=== PATIENT | female | born 1995 | race Caucasian/White ===

== ENCOUNTER 2016-11-08 10:03 | Emergency (ER) | payer OTHER ==
[2016-11-08 10:19] VITALS: BP 113/63; PULSE 84; TEMP 98.6; BMI 20.9
--- NOTE | 2016-11-08 10:28 | PDOC ---
History of Present Illness <Amada Mccormick - Last Filed: 11/08/16 15:34> - General History Source: Patient Exam Limitations: No Limitations - History of Present Illness Initial Comments: 11/08/16 11:06 The patient is a 21 year old female who is 18 weeks , with no significant past medical history, who presents to the emergency department with dysuria and urgency for the past 3 days. She notes that she is able to urinate a very small amount but notes that when she does, she experiences a burning sensation. She denies any other kind of symptoms. She denies any vaginal discharge. The patient denies chest pain, shortness of breath, headache and dizziness. Denies fever, chills, nausea, vomit, diarrhea and constipation. Denies frequency , and hematuria. Allergies: None Past surgical history: None reported Social history: No alcohol, tobacco or drug use reported <Alverto Biggs - Last Filed: 11/08/16 15:51> - General Chief Complaint: Pain Stated Complaint: LT SIDE PAIN, 16 WKS Time Seen by Provider: 11/08/16 10:25 Past History - Past Medical History Suicide Attempt (Hx): No - Psycho/Social/Smoking Cessation Hx Anxiety: No Suicidal Ideation: No Smoking Status: No Smoking History: Never smoked Have you smoked in the past 12 months: No Number of Cigarettes Smoked Daily: 0 Information on smoking cessation initiated: No Hx Alcohol Use: No Drug/Substance Use Hx: No Substance Use Type: None <Amada Mccormick - Last Filed: 11/08/16 15:34> <Alverto Biggs - Last Filed: 11/08/16 15:51> - Past Medical History Allergies/Adverse Reactions: Allergies Allergy/AdvReac Type Severity Reaction Status Date / Time No Known Allergies Allergy Verified 11/08/16 10:18 Home Medications: Ambulatory Orders Cephalexin [Keflex] 500 mg PO BID #14 capsule 11/10/15 Acetaminophen [Tylenol] 650 mg PO Q4H PRN #20 tablet 09/02/16 Cephalexin [Keflex] 500 mg PO BID #14 capsule 09/02/16 Metoclopramide HCl [Reglan] 10 mg PO Q6H PRN #20 tablet 09/02/16 Cephalexin Monohydrate [Keflex -] 500 mg PO Q8H #30 capsule 11/08/16 Review of Systems - Review of Systems Able to Perform ROS?: Yes Comments:: 11/08/16 11:06 GENERAL/CONSTITUTIONAL: No fever or chills. No weakness. HEAD, EYES, EARS, NOSE AND THROAT: No change in vision. No ear pain or discharge. No sore throat. CARDIOVASCULAR: No chest pain or shortness of breath RESPIRATORY: No cough, wheezing, or hemoptysis. GASTROINTESTINAL: No nausea, vomiting, diarrhea or constipation. GENITOURINARY: +Dysuria and urgency. No frequency MUSCULOSKELETAL: No joint or muscle swelling or pain. No neck or back pain. SKIN: No rash NEUROLOGIC: No headache, vertigo, loss of consciousness, or change in strength/ sensation. ENDOCRINE: No increased thirst. No abnormal weight change HEMATOLOGIC/LYMPHATIC: No anemia, easy bleeding, or history of blood clots. ALLERGIC/IMMUNOLOGIC: No hives or skin allergy. <Alverto Biggs - Last Filed: 11/08/16 15:51> *Physical Exam - Vital Signs Last Vital Signs Temp Pulse Resp BP Pulse Ox 98.6 F 84 18 113/63 98 11/08/16 10:15 11/08/16 10:15 11/08/16 10:15 11/08/16 10:15 11/08/16 10:15 - Physical Exam Comments: GENERAL: Awake, alert, and fully oriented, in no acute distress HEAD: No signs of trauma EYES: PERRLA, EOMI, sclera anicteric, conjunctiva clear ENT: Auricles normal inspection, hearing grossly normal, nares patent, oropharynx clear without exudates. Moist mucosa NECK: Normal ROM, supple, no lymphadenopathy, JVD, or masses LUNGS: Breath sounds equal, clear to auscultation bilaterally. No wheezes, and no crackles HEART: Regular rate and rhythm, normal S1 and S2, no murmurs, rubs or gallops ABDOMEN: Soft, mild suprapubic and LLQ tenderness, normoactive bowel sounds. No guarding, no rebound. No masses EXTREMITIES: Normal range of motion, no edema. No clubbing or cyanosis. No cords, erythema, or tenderness NEUROLOGICAL: Cranial nerves II through XII grossly intact. Normal speech, normal gait SKIN: Warm, Dry, normal turgor, no rashes or lesions noted. <Amada Mccormick - Last Filed: 11/08/16 15:34> - Vital Signs Last Vital Signs Temp Pulse Resp BP Pulse Ox 98.6 F 84 18 113/63 98 11/08/16 10:15 11/08/16 10:15 11/08/16 10:15 11/08/16 10:15 11/08/16 10:15 <Alverto Biggs - Last Filed: 11/08/16 15:51> ED Treatment Course - RADIOLOGY Radiograph Interpretation: 11/08/16 13:47 Left flank ultrasound Reviewed by: Dr. Brandon Chavez Impression: Slight dilatation of the right renal pelvis with no evidence of nephrolithiasis or significant hydronephrosis. Obstetrics Ultrasound Reviewed by: Dr. Brandon Chavez Impression: Single live intrauterine gestation 18 weeks 5 days gestational age. <Alverto Biggs - Last Filed: 11/08/16 15:51> Medical Decision Making - Medical Decision Making Patient with no CVAT, no vomiting, no fever. Will treat with keflex. Counseled her to increase PO fluid intake. <Amada Mccormick - Last Filed: 11/08/16 15:34> *DC/Admit/Observation/Transfer - Discharge Dispostion Admit: No <Amada Mccormick - Last Filed: 11/08/16 15:34> - Attestations Scribe Attestion: 11/08/16 11:07 Documentation prepared by Alverto Biggs, acting as medical support assistant for Amada Mccormick MD. <Alverto Biggs - Last Filed: 11/08/16 15:51> Diagnosis at time of Disposition: Urinary tract infection Qualifiers: Urinary tract infection type: site unspecified Hematuria presence: without hematuria Qualified Code(s): N39.0 - Urinary tract infection, site not specified - Discharge Dispostion Disposition: HOME Condition at time of disposition: Improved - Prescriptions Prescriptions: Cephalexin Monohydrate [Keflex -] 500 mg PO Q8H #30 capsule - Patient Instructions Printed Discharge Instructions: DI for Urinary Tract Infection (UTI) Additional Instructions: DRINK PLENTY OF FLUIDS. KEFLEX FOR 10 DAYS FOR THE INFECTION. TYLENOL IF NEEDED FOR PAIN.
[2016-11-08] MEDS ORDERED: SODIUM CHLORIDE 1,000 ML IV STA (11:24)
[2016-11-08 12:05] LABS: URINE APPEARANCE SLCLOUDY; URINE BILIRUBIN NEGATIVE (NEGATIVE); URINE COLOR LTYELLOW; URINE GLUCOSE (UA) NEGATIVE (NEGATIVE); URINE KETONE NEGATIVE (NEGATIVE); URINE NITRITE NEGATIVE (NEGATIVE); URINE UROBILINOGEN NEGATIVE E.U./dl (0.2-1.0)
[2016-11-08 12:36] LABS: URINE BLOOD 2+ (NEGATIVE); URINE LEUK ESTERASE 3+ (NEGATIVE); URINE PROTEIN 1+ (NEGATIVE)
[2016-11-08 12:38] LABS: URINE BACTERIA FEW /hpf (NONE SEEN); URINE MUCUS RARE; URINE RBC 29 /hpf (0-3); URINE WBC 243 /hpf (3-5); YEAST FEW
[2016-11-08] MEDS ORDERED: ACETAMINOPHEN 325 MG TABLET (FP) PO ONE (13:26)
[2016-11-08] MEDS ORDERED: ACETAMINOPHEN 325 MG TABLET (FP) ONE (13:27)
[2016-11-08] MEDS ORDERED: CEPHALEXIN MONOHYDRATE 500 MG CAPSULE (UD) PO ONE (13:34)
[2016-11-08] MEDS ORDERED: CEPHALEXIN MONOHYDRATE 250 MG CAPSULE (FP) ONE (13:48)
== END 2016-11-08 14:49 | disposition home or self-care (01) ==
LOC: JER 10:03
PROC: 3E0337Z Introduction of Electrolytic and Water Balance Substance into Peripheral Vein, Percutaneous Approach (ICD-10-PCS; principal; 2016-11-08)
DX: O23.32 Infections of other parts of urinary tract in pregnancy, second trimester (principal); Z3A.18 18 weeks gestation of pregnancy
CPT/HCPCS: 76775-TC; 76815-TC; 81003; 81015; 84703; 96360; 99282-25

== ENCOUNTER 2017-03-17 15:45 | Inpatient (IN) | payer OTHER ==
[2017-03-17] MEDS ORDERED: DINOPROSTONE 10 MG VAGINAL SUPPOSITORY VG ONE (16:00)
[2017-03-17 16:43] VITALS: BMI 25.4
[2017-03-17 17:57] LABS: BASOPHIL 0.3 % (0-2.0); EOSINOPHIL 0.5 % (0-4.5); MCH 30.3 pg (25.7-33.7); MEAN CELL VOLUME 91.8 fl (80-96); MEAN PLT VOLUME 7.9 fl (7.5-11.1); NEUTROPHILS 76.7 % (42.8-82.8); PLATELET COUNT 278 K/MM3 (134-434); RDW 12.7 % (11.6-15.6)
[2017-03-17 18:21] LABS: INR 0.99 (0.82-1.09); PROTHROMBIN TIME (PATIENT) 10.9 SEC (9.98-11.88)
[2017-03-17 18:24] LABS: ACTIVATED PTT 29.8 SECONDS (26.9-34.4)
[2017-03-17 18:44] LABS: ANION GAP 10 (8-16); BILIRUBIN,TOTAL 0.4 mg/dL (0.2-1.0); CALCIUM 8.8 mg/dL (8.5-10.1); CO2 26 mmol/L (21-32); CREATININE 0.5 mg/dL (0.55-1.02); GLUCOSE,RANDOM 63 mg/dL (74-106); SGOT/AST 40 U/L (15-37); SGPT/ALT 86 U/L (12-78); TOT PROT 6.7 g/dl (6.4-8.2)
[2017-03-17 18:45] LABS: ALK PHOS 221 U/L (45-117)
--- NOTE | 2017-03-17 19:14 | PN ---
Progress Note (short form) - Note Progress Note: cx 1 cm 25 vx -3 mi, fhr cat 1, no contraction, , cervidil inserted
--- NOTE | 2017-03-17 21:59 | HP ---
Past Medical History - Primary Care Physician PCP:: Ousmane Munoz - Admission Chief Complaint: 37 weeks, cholestasis of History of Present Illness: 21 yo f g 1 po 37 weeks with cholestasis of admitted for cervidil induction, risks discussed cx 1 cm 25 vx -3 mi, fhr cat 1, no contraction History Source: Patient Limitations to Obtaining History: No Limitations - Past Medical History ...: 1 ...Para: 0 ...LMP: 06/30/16 ... Weeks Gestation by Dates: 37.1 ...EDC by Dates: 04/06/17 ...EDC by Sono: 04/06/17 - Past Surgical History Hx Myomectomy: No Hx Transabdominal Cerclage: No - Smoking History Smoking history: Never smoked Have you smoked in the past 12 months: No Aproximately how many cigarettes per day: 0 - Alcohol/Substance Use Hx Alcohol Use: No - Social History Usual Living Arrangement: Yes: With Spouse History of Recent Travel: No Home Medications - Allergies Allergies/Adverse Reactions: Allergies Allergy/AdvReac Type Severity Reaction Status Date / Time No Known Allergies Allergy Verified 03/17/17 16:29 - Home Medications Home Medications: Ambulatory Orders Ferrous Sulfate 1 tab PO DAILY 03/17/17 Vit/Iron Fumarate/FA [ Tablet] 1 each PO DAILY 03/17/17 Ursodiol [Actigal] 300 mg PO TID 03/17/17 Review of Systems - Review of Systems Constitutional: reports: No Symptoms Eyes: reports: No Symptoms HENT: reports: No Symptoms Neck: reports: No Symptoms Cardiovascular: reports: No Symptoms Respiratory: reports: No Symptoms Gastrointestinal: reports: No Symptoms Genitourinary: reports: No Symptoms Breasts: reports: No Symptoms Reported Musculoskeletal: reports: No Symptoms Integumentary: reports: No Symptoms Neurological: reports: No Symptoms Endocrine: reports: No Symptoms Hematology/Lymphatic: reports: No Symptoms Psychiatric: reports: No Symptoms Physical Exam - Maternity Vital Signs: Vital Signs Temperature 98.4 F 03/17/17 18:00 Pulse Rate 76 03/17/17 19:00 Respiratory Rate 20 03/17/17 19:00 Blood Pressure 113/52 03/17/17 19:00 O2 Sat by Pulse Oximetry (%) Constitutional: Yes: Well Nourished, No Distress, Calm Eyes: Yes: WNL, Conjunctiva Clear, EOM Intact HENT: Yes: WNL, Atraumatic, Normocephalic Neck: Yes: WNL, Supple, Trachea Midline Cardiovascular: Yes: WNL, Regular Rate and Rhythm Breast(s): Yes: WNL - Abdominal Exam/OB Fundal Height: 37 Number of Fetuses: Single Presentation: Vertex Contractions: No Intensity: Unaware Monitor Mode: External Heart Rate Location: [facility] Category: I Accelerations: Uniform - Vaginal Exam/OB Vaginal Bleediing: No Dilatation (cm): 1 cm Effacement (%): 25 Amniotic Membrane Status: Intact Station: -3 - Physical Exam Extremities: Yes: WNL Edema: LLE: Trace, RLE: Trace Deep Tendon Reflex Grade: Normal +2 ...Motor Strength: WNL Psychiatric: Yes: WNL - Labs Lab Results: CBC, BMP 03/17/17 17:15 03/17/17 17:15 Hemorrhage Risk Assessment - Risk Factors Risk Score: 0 Risk Level: Low Risk Problem List - Problems (1) with 37 weeks completed gestation Code(s): Z3A.37 - 37 WEEKS GESTATION OF (2) Cholestasis during Code(s): O26.619 - LIVER AND BILIARY TRACT DISORD IN , [facility] TRIMESTER K83.1 - OBSTRUCTION OF BILE DUCT Qualifiers: Trimester: third trimester Qualified Code(s): O26.613 - Liver and biliary tract disorders in , third trimester Assessment/Plan admit for induction as per M recommendation, rba discussed
[2017-03-18] MEDS ORDERED: DEXTROSE 5%-LACTATED RINGERS 500 ML IV SCH (01:30)
[2017-03-18] MEDS: DEXTROSE 5%-LACTATED RINGERS 1,000 ML IV SCH (02:20)
[2017-03-18] MEDS ORDERED: BUTORPHANOL TARTRATE 1 MG/ML VIAL IVPUSH PRN (08:44)
--- NOTE | 2017-03-18 08:44 | PN ---
Progress Note (short form) - Note Progress Note: cervidil removed at 715 am, 840 am cx 3 cm,80 vx -2 membrane bulging . arom clear fhr cat 1, irregular contraction plan pitocin stimulation, rba discussed Problem List - Problems (1) with 37 weeks completed gestation Code(s): Z3A.37 - 37 WEEKS GESTATION OF (2) Cholestasis during Code(s): O26.619 - LIVER AND BILIARY TRACT DISORD IN , UNSP TRIMESTER K83.1 - OBSTRUCTION OF BILE DUCT Qualifiers: Trimester: third trimester Qualified Code(s): O26.613 - Liver and biliary tract disorders in , third trimester
[2017-03-18] MEDS ORDERED: FERROUS SO4 325 MG TABLET (FP) PO SCH (10:00)
[2017-03-18] MEDS ORDERED: FENTANYL/BUPIVACAINE/NS/PF - PCEA - 50 ML DISP.SYRIN EP SCH (12:00)
[2017-03-18] MEDS ORDERED: ELECTROLYTE-148 SOLN 1,000 ML IV SCH ×2 (12:45→20:00)
[2017-03-18] MEDS ORDERED: OXYTOCIN 15 UNITS/ LR 250 ML 250 ML IVPB SCH (15:15)
--- NOTE | 2017-03-18 15:22 | PN ---
Progress Note (short form) - Note Progress Note: 21 yrs 37 weeks, h/o cholestasis, rx po Urosodiol s/p cervidil induction of labor on 03/16/[address] Munoz 8.40 am AROM was done 3 cm/80%/vx-2 9.15 am stadol 2 mg iv 12.00 noon Epidural Labor analgesia 3.15 PM exam 6 cm/80%/Vx/-2/-1 station/ MR UC 2 4 min , mild to moderate FHR 125-130 , reactive, cat -1 03/10/17 us 36.1/7 wks, efw (2648 gm=5'13"0, afi12.18,bpp8/8 Selected Entries 03/18/17 03/18/17 03/18/17 14:11 14:15 14:30 Temperature 97.9 F Pulse Rate 68 66 Blood Pressure 103/65 101/65 03/18/17 14:45 Temperature Pulse Rate 69 Blood Pressure 108/65 Laboratory Tests 03/17/17 03/17/17 03/17/17 17:15 17:15 17:15 WBC 7.0 Hgb 12.0 Hct 36.3 Plt Count 278 Neutrophils % 76.7 Lymphocytes % 16.4 Monocytes % 6.1 Eosinophils % 0.5 INR 0.99 PTT (Actin FS) 29.8 Sodium 138 Potassium 3.9 Chloride 102 Carbon Dioxide 26 Creatinine 0.5 L Random Glucose 63 L Calcium 8.8 Total Bilirubin 0.4 AST 40 H D ALT 86 H RPR Titer 03/17/17 17:15 WBC Hgb Hct Plt Count Neutrophils % Lymphocytes % Monocytes % Eosinophils % INR PTT (Actin FS) Sodium Potassium Chloride Carbon Dioxide Creatinine Random Glucose Calcium Total Bilirubin AST ALT RPR Titer Nonreactive Plan : Pitocin Augmentation ct trial of labor
[2017-03-18] MEDS: PRENATAL VITAMINS W/ FOLIC ACID TABLET (FP) PO SCH (17:39)
[2017-03-18] MEDS ORDERED: ACETAMINOPHEN 325 MG TABLET (FP) PO ONE (18:41)
[2017-03-18] MEDS ORDERED: CEFAZOLIN 1 GM/D5W 50 ML IVPB ONE (18:42)
--- NOTE | 2017-03-18 18:48 | PN ---
Progress Note (short form) - Note Progress Note: 6.30 pm Temp 100.5, pulse 89, BP 100/70 pelvic : 8cm/90%/Vx /0 station/MR UC 2-4 min ,FHR 150 , cat-1 rx po tylenol 2 tabs stat IV Ancef 1 gm ivpb stat Selected Entries 03/18/17 03/18/17 18:30 18:32 Temperature 100.5 F H Pulse Rate 90 Blood Pressure 104/62 7.30pm Temp 101.6, Pulse 105/min , FHR 150/min , cat-1 . UC q 2-3 min pelvic : 9cm/90%/MR/VX/+1 Plan Bolus 500ml/hr iv fluid 8.30 pm Temp 101.7 fhr 150-170 cat-1 cx 9cm/99%/vx +1 /. IMP ; gradual increase in FHR base line 130-140 t0 160-170 now Maternal Temp persistent inspite of Tylenol, , IV ancef , 500 ml bolus Iv fluids AC Chorioamnionitis , failure to progress, failed induction 37 weeks for cholestasis Plan delivery By primary c/section Selected Entries 03/18/17 20:30 Temperature 100.7 F H
[2017-03-18] MEDS ORDERED: CITRIC ACID/SODIUM CITRATE 30 ML UNIT-DOSE CUP PO ONE (20:47)
[2017-03-18 21:47] LABS: ARTERIAL BLD GAS O2 SATURATION 47.5 % (90-98.9); ARTERIAL BLOOD GAS BASE EXCESS -1.2 meq/l (-2-2); ARTERIAL BLOOD GAS HCO3 24.2 meq/L (22-26); ARTERIAL BLOOD GAS pH 7.35 (7.35-7.45)
[2017-03-18 21:50] LABS: VENOUS BLOOD GAS HCO3 24.7 meq/L (19-25); VENOUS PH 7.37 (7.32-7.42)
[2017-03-18 21:53] LABS: PT. ON O2? NO
[2017-03-18 21:54] LABS: ARTERIAL BLOOD GAS PO2 23.5 mmHg (80-100)
[2017-03-18] MEDS ORDERED: METHYLERGONOVINE MALEATE 0.2 MG/1 ML AMP IM PRN (22:00)
[2017-03-18] MEDS ORDERED: IBUPROFEN 800 MG/8 ML IJ IVPB PRN (22:18)
[2017-03-18] MEDS ORDERED: SENNOSIDES/DOCUSATE COMBO (SENNA PLUS) TABLET (UD) PO PRN (22:18)
[2017-03-18] MEDS: D5W-LR W/ 20 UNITS OXYTOCIN 1,000 ML IV SCH (22:30)
[2017-03-18] MEDS ORDERED: OXYTOCIN 10 UNIT/ML 10ML MDV IV SCH (22:45)
--- NOTE | 2017-03-18 22:47 | OP ---
Operative Note - Note: Operative Date: 03/18/17 Pre-Operative Diagnosis: 37 weeks,Ac chorioamnionitis failed induction, failure to progress, cholestasis Operation: Primary LFTC/section Findings: 9.22 pm, Baby Boy, 9/9 wt 6lb, Ht 19", ROP position both tubes & ovaries normal Dr sellers present in the room,baby transferred to NICU Surgeon: Wilda Mckeon It Quality Assurance Analyst: Micheline Arcos Anesthesiologist/DRAINMAN: Silvio Arias Anesthesia: Epidural Specimens Removed: uterine culture. cord segment for cord blood gas. cord blood. placenta Estimated Blood Loss (mls): 1,000 (im methergine post op in OR given ) Drains, Volume Out (mls): 200 (freed iutput, gualberto color ) Fluid Volume Replaced (mls): 1,000 (iv ancef 1 gm preop & 80 mg gentamicin after delivery of baby ) Operative Report Dictated: Yes
[2017-03-18] MEDS ORDERED: LACTATED RINGERS IV SCH (23:00)
[2017-03-18] MEDS ORDERED: DEXTROSE 5% IV SCH (23:00)
[2017-03-18] MEDS ORDERED: OXYTOCIN IV SCH (23:00)
--- NOTE | 2017-03-18 23:06 | PN ---
Delivery - Delivery Section: Primary, Low Flap Transverse (indication 37 weeks, Ac Chorioamnionitis , FTP, Failed Induction of labor, cholestasis) Type of Anesthesia: Epidural Episiotomy/Laceration: None EBL (cc): 1,000 Delivery, Single - Stages of Labor Date 1st Stage Initiatied: 03/18/17 Time 1st Stage Initiated: 08:45 Date of Delivery: 03/18/17 Time of Delivery: 21:22 Date Placenta Delivered: 03/18/17 Time Placenta Delivered: 21:24 Placenta: Yes: Manual Removal, Uterine Exploration - Condition of Director Employee Communications/Wood Borer Present: Yes Name: Shanda Meng Infant Gender: Male Weight: 6 lb Position: Right, OP Total Hours ROM (Hrs/Mins): 12hrs 44mins - 1 Minute Total Score: 9 5 Minutes Total Score: 9 - Feeding Plan Initial Plan: Elected not to breastfeed exclusively throughout hospitalization Remarks - Remarks Remarks: 21 yrs , 37 weeks , IUP , cholestasis admitted for Induction of labor by Dr Munoz on 03/17/17. pnc at , [facility] GBS neg Cervidil induction on 03/17/17 Pitocin augmentation 03/18/17 Elevated Temp, 101 .7, not responding to antibiotic iv ancef), tylenol, iv bolus , tachycardia relative to pearlier baseline Ac Chorioamnionitis diagnozed FTP ( 9 cm/+1 st ) , Failed induction of labor . Intra op IV ancef 1 gm & Iv Gentamicin 80 mg Iv given Intraop course uneventful. uterine culture taken . urine c/s sent preop Post op uterine atony suspected, Im Methergine 0.2 mg im & 40 iu pitocin in 1000 ml is given Po Temp 100.4, BP 113/57, Pulse 106/min
[2017-03-18] MEDS ORDERED: ONDANSETRON 4 MG/2 ML VIAL IVPB PRN (23:09)
[2017-03-19] MEDS: ACETAMINOPHEN 325 MG TABLET (FP) PO PRN ×2 (00:45→14:33)
[2017-03-19] MEDS ORDERED: CEFAZOLIN 1 GM/D5W 50 ML IVPB SCH (02:00)
[2017-03-19] MEDS: GENTAMICIN 80 MG PREMIXED IVPB 100 ML IVPB SCH ×3 (02:13→17:03)
[2017-03-19] MEDS: CLINDAMYCIN 900 MG PREMIX IVPB 50 ML IVPB SCH ×3 (02:59→18:11)
[2017-03-19] MEDS: D5W-LR W/ 20 UNITS OXYTOCIN 1,000 ML IV SCH (07:30)
--- NOTE | 2017-03-19 07:34 | OP ---
DATE OF OPERATION: 03/18/2017 PREOPERATIVE DIAGNOSES: A 37-week , acute chorioamnionitis, failed induction of labor, failure to progress, and cholestasis. OPERATION DONE: Primary low flap transverse section. SURGEON: Wilda Mckeon MD CLINIC LPN: Micheline Arcos MD ANESTHESIOLOGIST: Silvio Arias MD ANESTHESIA: Epidural. FINDINGS: This is a 21-year-old 1, para 0 who was admitted on March 17 for induction of labor with Cervidil due to cholestasis and Cervidil induction followed by Pitocin induction was continued. She dilated up to 9 cm and +1 station, but 2 hours prior to the patient had fever which kept increasing from 100.5 to 101.7 in spite of giving antibiotics and Tylenol and the heart rate baseline had increased from 130 to 160 to 170, some tachycardia also, chorioamnionitis suspected, so patient was taken for a . PROCEDURE: Epidural anesthesia was reinforced and she was taken to the operating room table. Kaur was in situ. SCD stockings were also placed. Abdomen was painted and draped in usual manner. Pfannenstiel incision was made. The skin, subcutaneous tissue, anterior rectus sheath were incised transversely. Bleeding points were clamped and cauterized. Rectus muscle was from the rectus sheath. Parietal peritoneum was opened vertically. Lower flap bladder peritoneum was incised transversely. Lower uterine segment was incised transversely and the amniotic fluid was clear and uterine culture was taken. Baby was delivered from ROP position at 9:22 p.m. Cord was clamped, cut. Cord blood was collected. Immediate oral and nasal suction was done. Baby was handed over to the computer repairer, Dr. Meng. was 9/9 and baby's weight was 6 pounds. Baby was transferred to the NICU for a septic workup. Then, cord segment was collected for the cord blood gas which was normal reported and then cord blood was collected. Placenta was completely removed with the membranes. Uterine cavity was cleaned and then uterine incision was identified. There was bleeding from the left angle of the uterus incision, bleeding from the uterine vessels, so it was separately ligated and then the uterine incision was closed with a Biosyn 0 suture. Continuous locking sutures were taken. Second layer was continuous intermittent locking with a Biosyn 0 suture and vertical mattress sutures were taken. Hemostasis was checked and the bladder peritoneum was closed also with a Biosyn 0 suture. Irrigation was done. Both tubes and ovaries were normal and sponge, instrument, and needle count was correct. Then, the closure of the abdomen was done. Parietal peritoneum was closed with a Vicryl 0 suture. Muscles were approximated together with interrupted Vicryl 0 sutures and below the rectus sheath hemostasis was checked and anterior rectus sheath was closed with a Vicryl 0 suture. Continuous sutures were taken and subcutaneous tissue hemostasis was verified and interrupted sutures were taken in the subcutaneous tissue with a Biosyn 0 suture. The skin was approximated with juana. Pressure dressing was given. Blood clots were removed from the vagina. At this point, uterus was noted to be getting soft and atonic and bimanual uterine massage was given externally and IM Methergine was given, 0.25 mg, and the uterus was getting firm and relaxing in between.mild atony was noted, so it was decided to give 40 units of Pitocin 1000 mL and continue the observation. Estimated blood loss was 1000 mL. Urine output was 200 mL. Intraoperatively, it was gualberto colored. Preoperatively, urine was sent for culture also and patient was given IV Ancef prior to the incision, 1 g, and 80 mg of gentamicin after the baby was born and total IV infusion 1000 mL. Postoperatively, patient's temperature was 100.4. The pulse was 106 and blood pressure was 113/57. Stacey [id number] MTDD
[2017-03-19 08:47] LABS: BASOPHIL 0.1 % (0-2.0); MCH 30.9 pg (25.7-33.7); MCHC 33.4 g/dl (32.0-36.0); MEAN CELL VOLUME 92.4 fl (80-96); MEAN PLT VOLUME 7.7 fl (7.5-11.1); NEUTROPHILS 90.4 % (42.8-82.8); PLATELET COUNT 199 K/MM3 (134-434); RDW 12.7 % (11.6-15.6); WHITE BLOOD COUNT 19.4 K/mm3 (4.0-10.0)
[2017-03-19 09:06] LABS: ALBUMIN 1.8 g/dl (3.4-5.0); ANION GAP 13 (8-16); CALCIUM 7.5 mg/dL (8.5-10.1); CO2 23 mmol/L (21-32); GLUCOSE,RANDOM 87 mg/dL (74-106); SGOT/AST 30 U/L (15-37); SGPT/ALT 60 U/L (12-78)
[2017-03-19 09:08] LABS: ALK PHOS 154 U/L (45-117); BILIRUBIN,TOTAL 1.1 mg/dL (0.2-1.0); CREATININE 0.5 mg/dL (0.55-1.02); TOT PROT 4.7 g/dl (6.4-8.2)
[2017-03-19] MEDS ORDERED: oxyCODONE HCL 5 MG TABLET PO PRN ×2 (10:00)
[2017-03-19] MEDS: PRENATAL VITAMINS W/ FOLIC ACID TABLET (FP) PO SCH (11:28)
--- NOTE | 2017-03-19 13:59 | PN ---
Post Progress Note - Subjective Subjective: c/o pain scale 2 freed in situ . no c/o fever or headache Post Day: 1 Type of Delivery: Primary C/S Vital Signs: Vital Signs Temperature 99.4 F 03/19/17 07:30 Pulse Rate 85 03/19/17 07:30 Respiratory Rate 20 03/19/17 11:00 Blood Pressure 106/52 03/19/17 07:30 O2 Sat by Pulse Oximetry (%) 100 03/19/17 00:30 Selected Entries 03/19/17 03/19/17 03/19/17 00:30 01:15 06:00 Temperature 102.3 F H 101.1 F H 99.9 F H Pulse Rate 86 91 H 94 H Blood Pressure 107/64 106/57 107/50 Breast Exam: Yes: Soft, Other (plans to BF ). No: Engorged Uterus: Yes: Fundus Firm, Fundus below umbilicus, Non-tender Incision: Yes: Dressing dry and intact. No: Redness, Oozing Abdomen/GI: Yes: Abdomen soft, Tender, Tolerating PO (clear liqiuids ). No: Abdominal Distention, Passing flatus Lochia: Yes: Rubra Lochia, amount: Moderate (notfoul smelling) Extremities: Yes: Calves non-tender (scd in situ ) Perineum: Yes: Intact Activity: Other (not oob yet, ) - Labs Labs: CBC WBC 19.4 K/mm3 (4.0-10.0) H D 03/19/17 07:50 RBC 3.33 M/mm3 (3.60-5.2) L 03/19/17 07:50 Hgb 10.3 GM/dL (10.7-15.3) L D 03/19/17 07:50 Hct 30.8 % (32.4-45.2) L D 03/19/17 07:50 MCV 92.4 fl (80-96) 03/19/17 07:50 MCHC 33.4 g/dl (32.0-36.0) 03/19/17 07:50 RDW 12.7 % (11.6-15.6) 03/19/17 07:50 Plt Count 199 K/MM3 (134-434) D 03/19/17 07:50 MPV 7.7 fl (7.5-11.1) 03/19/17 07:50 Neutrophils % 90.4 % (42.8-82.8) H 03/19/17 07:50 Lymphocytes % 5.0 % (8-40) L D 03/19/17 07:50 Monocytes % 4.5 % (3.8-10.2) 03/19/17 07:50 Eosinophils % 0.0 % (0-4.5) D 03/19/17 07:50 Basophils % 0.1 % (0-2.0) 03/19/17 07:50 Other Findings, Remarks: RS cta . freed urine concentrated out put 550 ml Problem List - Problems (1) Cholestasis during Code(s): O26.619 - LIVER AND BILIARY TRACT DISORD IN , UNSP TRIMESTER K83.1 - OBSTRUCTION OF BILE DUCT Qualifiers: Trimester: third trimester Qualified Code(s): O26.613 - Liver and biliary tract disorders in , third trimester (2) with 37 weeks completed gestation Code(s): Z3A.37 - 37 WEEKS GESTATION OF (3) Acute chorioamnionitis Code(s): O41.1290 - CHORIOAMNIONITIS, UNSP TRIMESTER, NOT APPLICABLE OR UNSP (4) Failed induction of labor Code(s): O61.9 - FAILED INDUCTION OF LABOR, UNSPECIFIED (5) Failure to progress in labor Code(s): O62.2 - OTHER UTERINE INERTIA (6) delivery delivered Code(s): O82 - ENCOUNTER FOR DELIVERY WITHOUT INDICATION Assessment/Plan 2o yrs , s/p c/section due to Ac Chorioamnionitis pt had post Temp max to 102.[address] Iv Clindamicin & Gentamicin
[2017-03-19] MEDS: IBUPROFEN 600 MG TABLET (FP) PO PRN (14:32)
[2017-03-19] MEDS: SIMETHICONE 80 MG TAB.CHEW (FP) PO PRN (14:34)
--- NOTE | 2017-03-19 21:42 | PN ---
Progress Note (short form) - Note Progress Note: ANESTHESIOLOGY POST-OP CHECK 21F s/p under epidural anesthesia, POD #1. No acute complaints. Denies N/V, backache, headache, numbness, weakness. Tolerating PO, freed in place. Pain 2/10 and tolerable. Vital Signs Temperature 98.4 F 03/19/17 20:46 Pulse Rate 76 03/19/17 20:46 Respiratory Rate 20 03/19/17 20:46 Blood Pressure 90/64 03/19/17 20:46 O2 Sat by Pulse Oximetry (%) 100 03/19/17 00:30 Active Medications Acetaminophen (Tylenol -) 650 mg PO Q4H PRN PRN Reason: FEVER OR PAIN Last Admin: 03/19/17 14:33 Dose: 650 mg Bisacodyl (Dulcolax Suppository -) 10 mg RC PRN PRN PRN Reason: CONSTIPATION Diphenhydramine HCl (Benadryl Injection -) 25 mg IVPUSH Q4H PRN PRN Reason: Pruritis Ferrous Sulfate (Feosol -) 325 mg PO BID [facility] Parenteral Electrolytes (Plasma-Lyte 148 -) 1,000 mls @ 500 mls/hr IV ASDIR MARCE Last Admin: 03/18/17 19:51 Dose: 500 mls/hr Dextrose/Lactated Ringer's (Pitocin 20 Units In D5-Lr -) 1,000 mls @ 125 mls/ hr IV ASDIR MARCE Last Admin: 03/19/17 07:30 Dose: 125 mls/hr Gentamicin Sulfate/Sodium Chloride (Garamycin 80 Mg Premixed Ivpb -) 100 mls @ 100 mls/hr IVPB Q8H-IV MARCE Last Admin: 03/19/17 17:03 Dose: 100 mls/hr Clindamycin Phosphate (Cleocin 900 Mg Premix Ivpb -) 50 mls @ 100 mls/hr IVPB Q8H-IV MARCE Last Admin: 03/19/17 18:11 Dose: 100 mls/hr Ibuprofen (Motrin -) 600 mg PO Q4H PRN PRN Reason: PAIN Last Admin: 03/19/17 14:32 Dose: 600 mg Ibuprofen (Caldolor Injection -) 800 mg IVPB Q8H PRN PRN Reason: PAIN OR FEVER Last Admin: 03/19/17 20:41 Dose: 800 mg Methylergonovine Maleate (Methergine Injection -) 0.2 mg IM Q4H PRN PRN Reason: Excessive Bleeding (L&D) Oxycodone HCl (Roxicodone -) 5 mg PO Q4H PRN PRN Reason: PAIN LEVEL 1-5 Oxycodone HCl (Roxicodone -) 10 mg PO Q4H PRN PRN Reason: PAIN LEVEL 6-10 Multivit/Folic Acid/Iron ( Vitamins (Sjr) -) 1 tab PO DAILY MARCE Last Admin: 03/19/17 11:28 Dose: Not Given Senna/Docusate Sodium (Pericolace -) 2 tablet PO HS PRN PRN Reason: CONSTIPATION Simethicone (Mylicon -) 80 mg PO Q4H PRN PRN Reason: GAS Last Admin: 03/19/17 14:34 Dose: 80 mg Gen: awake, alert Ext: No apparent motor or sensory deficits of B/L lower extremities. No apparent anesthesia complications. Pain controlled. Continue management as per primary team.
[2017-03-19] MEDS ORDERED: BISACODYL 10 MG SUPP.RECT RC PRN (22:19)
[2017-03-20] MEDS: GENTAMICIN 80 MG PREMIXED IVPB 100 ML IVPB SCH ×3 (02:03→17:40)
[2017-03-20] MEDS: CLINDAMYCIN 900 MG PREMIX IVPB 50 ML IVPB SCH ×3 (02:55→17:00)
[2017-03-20] MEDS: FERROUS SO4 325 MG TABLET (FP) PO SCH ×3 (03:41→22:27)
[2017-03-20] MEDS: DEXTROSE 5%-LACTATED RINGERS 1,000 ML IV SCH (06:21)
--- NOTE | 2017-03-20 07:47 | PN ---
Post Progress Note - Subjective Subjective: no c/o fever. voiding without difficulty Post Day: 2 Type of Delivery: Primary C/S Vital Signs: Vital Signs Temperature 98.3 F 03/20/17 06:00 Pulse Rate 76 03/19/17 20:46 Respiratory Rate 20 03/19/17 22:00 Blood Pressure 90/64 03/19/17 20:46 O2 Sat by Pulse Oximetry (%) 100 03/19/17 00:30 Breast Exam: Yes: Soft, Other (pumping & dumping ). No: Engorged Uterus: Yes: Fundus Firm, Fundus below umbilicus, Non-tender Incision: Yes: [place] intact. No: Redness, Oozing Abdomen/GI: Yes: Abdomen soft, Tender, Passing flatus, Tolerating PO (clear liqiuds ), Other (no cva tenderness). No: Abdominal Distention Lochia: Yes: Rubra Lochia, amount: Moderate Extremities: Yes: Calves non-tender Perineum: Yes: Intact Activity: Ambulating - Labs Labs: CBC WBC 19.4 K/mm3 (4.0-10.0) H D 03/19/17 07:50 RBC 3.33 M/mm3 (3.60-5.2) L 03/19/17 07:50 Hgb 10.3 GM/dL (10.7-15.3) L D 03/19/17 07:50 Hct 30.8 % (32.4-45.2) L D 03/19/17 07:50 MCV 92.4 fl (80-96) 03/19/17 07:50 MCHC 33.4 g/dl (32.0-36.0) 03/19/17 07:50 RDW 12.7 % (11.6-15.6) 03/19/17 07:50 Plt Count 199 K/MM3 (134-434) D 03/19/17 07:50 MPV 7.7 fl (7.5-11.1) 03/19/17 07:50 Neutrophils % 90.4 % (42.8-82.8) H 03/19/17 07:50 Lymphocytes % 5.0 % (8-40) L D 03/19/17 07:50 Monocytes % 4.5 % (3.8-10.2) 03/19/17 07:50 Eosinophils % 0.0 % (0-4.5) D 03/19/17 07:50 Basophils % 0.1 % (0-2.0) 03/19/17 07:50 Other Findings, Remarks: rs cta Problem List - Problems (1) Cholestasis during Code(s): O26.619 - LIVER AND BILIARY TRACT DISORD IN , UNSP TRIMESTER K83.1 - OBSTRUCTION OF BILE DUCT Qualifiers: Trimester: third trimester Qualified Code(s): O26.613 - Liver and biliary tract disorders in , third trimester (2) with 37 weeks completed gestation Code(s): Z3A.37 - 37 WEEKS GESTATION OF (3) Acute chorioamnionitis Code(s): O41.1290 - CHORIOAMNIONITIS, UNSP TRIMESTER, NOT APPLICABLE OR UNSP (4) Failed induction of labor Code(s): O61.9 - FAILED INDUCTION OF LABOR, UNSPECIFIED (5) Failure to progress in labor Code(s): O62.2 - OTHER UTERINE INERTIA (6) delivery delivered Code(s): O82 - ENCOUNTER FOR DELIVERY WITHOUT INDICATION Assessment/Plan post c/s day #2 , s/p ac chorioamnionitis on iV clindamycin & gentamicin Plan ct iv antibiotics
[2017-03-20] MEDS: PRENATAL VITAMINS W/ FOLIC ACID TABLET (FP) PO SCH (09:18)
[2017-03-20] MEDS: ACETAMINOPHEN 325 MG TABLET (FP) PO PRN ×2 (13:45→23:33)
[2017-03-20] MEDS: IBUPROFEN 600 MG TABLET (FP) PO PRN (23:33)
[2017-03-20] MEDS: SIMETHICONE 80 MG TAB.CHEW (FP) PO PRN (23:33)
[2017-03-21] MEDS: GENTAMICIN 80 MG PREMIXED IVPB 100 ML IVPB SCH ×3 (01:42→17:17)
[2017-03-21] MEDS: CLINDAMYCIN 900 MG PREMIX IVPB 50 ML IVPB SCH (02:36)
[2017-03-21] MEDS: D5W-LR W/ 20 UNITS OXYTOCIN 1,000 ML IV SCH (02:39)
[2017-03-21 07:32] LABS: BASOPHIL 0.4 % (0-2.0); EOSINOPHIL 1.1 % (0-4.5); MCH 31.2 pg (25.7-33.7); MCHC 34.4 g/dl (32.0-36.0); MEAN CELL VOLUME 90.8 fl (80-96); NEUTROPHILS 76.7 % (42.8-82.8); PLATELET COUNT 215 K/MM3 (134-434); RDW 13.1 % (11.6-15.6); WHITE BLOOD COUNT 9.9 K/mm3 (4.0-10.0)
--- NOTE | 2017-03-21 08:19 | PN ---
Post Progress Note - Subjective Subjective: pt feels better she had fever yesterday afternoon Tmax 100.2 Post Day: 3 Type of Delivery: Primary C/S Vital Signs: Vital Signs Temperature 97.6 F 03/21/17 05:30 Pulse Rate 70 03/20/17 21:00 Respiratory Rate 20 03/20/17 21:00 Blood Pressure 110/68 03/20/17 21:00 O2 Sat by Pulse Oximetry (%) 100 03/19/17 00:30 Microbiology 03/18/17 21:30 Intrauterine Gram Stain - Final 03/18/17 21:05 Urine - Urine Kaur Urine Culture - Final NO GROWTH OBTAINED 03/18/17 21:30 Intrauterine Wound Culture - Preliminary Group D Strep Or Entero Coccus Selected Entries 03/20/17 03/20/17 07:20 13:40 Temperature 99.9 F H 100.2 F H Pulse Rate 77 Blood Pressure 110/71 Breast Exam: Yes: Soft. No: Engorged Uterus: Yes: Fundus Firm (mild tenderness), Fundus below umbilicus Incision: Yes: [place] intact. No: Redness, Oozing Abdomen/GI: Yes: Abdomen soft, Tender (mild), Passing flatus, Tolerating PO ( diet ). No: Abdominal Distention Lochia: Yes: Rubra Lochia, amount: Moderate Extremities: Yes: Calves non-tender Perineum: Yes: Intact Activity: Ambulating - Labs Labs: CBC WBC 9.9 K/mm3 (4.0-10.0) D 03/21/17 06:00 RBC 3.05 M/mm3 (3.60-5.2) L 03/21/17 06:00 Hgb 9.5 GM/dL (10.7-15.3) L 03/21/17 06:00 Hct 27.7 % (32.4-45.2) L 03/21/17 06:00 MCV 90.8 fl (80-96) 03/21/17 06:00 MCHC 34.4 g/dl (32.0-36.0) 03/21/17 06:00 RDW 13.1 % (11.6-15.6) 03/21/17 06:00 Plt Count 215 K/MM3 (134-434) 03/21/17 06:00 MPV 8.0 fl (7.5-11.1) 03/21/17 06:00 Neutrophils % 76.7 % (42.8-82.8) 03/21/17 06:00 Lymphocytes % 16.3 % (8-40) D 03/21/17 06:00 Monocytes % 5.5 % (3.8-10.2) 03/21/17 06:00 Eosinophils % 1.1 % (0-4.5) D 03/21/17 06:00 Basophils % 0.4 % (0-2.0) D 03/21/17 06:00 Microbiology 03/18/17 21:30 Intrauterine Gram Stain - Final 03/18/17 21:05 Urine - Urine Kaur Urine Culture - Final NO GROWTH OBTAINED 03/18/17 21:30 Intrauterine Wound Culture - Preliminary Group D Strep Or Entero Coccus Other Findings, Remarks: RS cta Problem List - Problems (1) Cholestasis during Code(s): O26.619 - LIVER AND BILIARY TRACT DISORD IN , UNSP TRIMESTER K83.1 - OBSTRUCTION OF BILE DUCT Qualifiers: Trimester: third trimester Qualified Code(s): O26.613 - Liver and biliary tract disorders in , third trimester (2) with 37 weeks completed gestation Code(s): Z3A.37 - 37 WEEKS GESTATION OF (3) Acute chorioamnionitis Code(s): O41.1290 - CHORIOAMNIONITIS, UNSP TRIMESTER, NOT APPLICABLE OR UNSP (4) Failed induction of labor Code(s): O61.9 - FAILED INDUCTION OF LABOR, UNSPECIFIED (5) Failure to progress in labor Code(s): O62.2 - OTHER UTERINE INERTIA (6) delivery delivered Code(s): O82 - ENCOUNTER FOR DELIVERY WITHOUT INDICATION Assessment/Plan s/p c/section for AC Chorioamnionitis , post op day#3 on clindamycin & gentamicin . intrauterine culture pos for Entercocccus D . plan d/c clindamycin, add Ampicillin iv tiday
[2017-03-21] MEDS ORDERED: AMPICILLIN - 2 GM in SODIUM CHLORIDE 100 ML IVPB ONE (09:03)
[2017-03-21] MEDS: FERROUS SO4 325 MG TABLET (FP) PO SCH ×2 (09:57→23:00)
[2017-03-21] MEDS: PRENATAL VITAMINS W/ FOLIC ACID TABLET (FP) PO SCH (09:57)
[2017-03-21] MEDS: AMPICILLIN - 1 GM in SODIUM CHLORIDE 100 ML IVPB SCH ×2 (15:11→21:10)
[2017-03-21] MEDS: IBUPROFEN 600 MG TABLET (FP) PO PRN (23:04)
[2017-03-21] MEDS: SIMETHICONE 80 MG TAB.CHEW (FP) PO PRN (23:04)
[2017-03-21] MEDS: ACETAMINOPHEN 325 MG TABLET (FP) PO PRN (23:05)
[2017-03-22] MEDS: GENTAMICIN 80 MG PREMIXED IVPB 100 ML IVPB SCH ×2 (02:26→12:34)
[2017-03-22] MEDS: AMPICILLIN - 1 GM in SODIUM CHLORIDE 100 ML IVPB SCH ×2 (03:38→09:00)
[2017-03-22] MEDS: FERROUS SO4 325 MG TABLET (FP) PO SCH ×2 (09:07→22:48)
[2017-03-22] MEDS: PRENATAL VITAMINS W/ FOLIC ACID TABLET (FP) PO SCH (09:07)
[2017-03-22] MEDS: AMOX TR/POT CLAV 875MG/125MG TABLETS (FP) PO SCH ×2 (12:33→18:51)
--- NOTE | 2017-03-22 18:15 | PN ---
Post Progress Note - Subjective Subjective: pain is less , scale 5/10 voiding without difficulty Post Day: 4 Type of Delivery: Primary C/S Vital Signs: Vital Signs Temperature 98.4 F 03/22/17 13:00 Pulse Rate 68 03/22/17 13:00 Respiratory Rate 20 03/22/17 13:00 Blood Pressure 118/62 03/22/17 13:00 O2 Sat by Pulse Oximetry (%) 100 03/19/17 00:30 Breast Exam: Yes: Soft, Other (BF ). No: Engorged Uterus: Yes: Fundus Firm, Fundus below umbilicus (mildly tender ) Incision: Yes: [place] intact. No: Redness, Oozing Abdomen/GI: Yes: Abdomen soft, Tender (no cva tenderness bilatera . tenderness over uterus ), Passing flatus (bm done ), Tolerating PO (diet ). No: Abdominal Distention Lochia: Yes: Rubra Lochia, amount: Moderate Extremities: Yes: Calves non-tender Perineum: Yes: Intact Activity: Ambulating - Labs Labs: CBC WBC 9.9 K/mm3 (4.0-10.0) D 03/21/17 06:00 RBC 3.05 M/mm3 (3.60-5.2) L 03/21/17 06:00 Hgb 9.5 GM/dL (10.7-15.3) L 03/21/17 06:00 Hct 27.7 % (32.4-45.2) L 03/21/17 06:00 MCV 90.8 fl (80-96) 03/21/17 06:00 MCHC 34.4 g/dl (32.0-36.0) 03/21/17 06:00 RDW 13.1 % (11.6-15.6) 03/21/17 06:00 Plt Count 215 K/MM3 (134-434) 03/21/17 06:00 MPV 8.0 fl (7.5-11.1) 03/21/17 06:00 Neutrophils % 76.7 % (42.8-82.8) 03/21/17 06:00 Lymphocytes % 16.3 % (8-40) D 03/21/17 06:00 Monocytes % 5.5 % (3.8-10.2) 03/21/17 06:00 Eosinophils % 1.1 % (0-4.5) D 03/21/17 06:00 Basophils % 0.4 % (0-2.0) D 03/21/17 06:00 Microbiology 03/18/17 21:30 Intrauterine Gram Stain - Final 03/18/17 21:30 Intrauterine Wound Culture - Final Enterococcus Faecalis Problem List - Problems (1) Cholestasis during Code(s): O26.619 - LIVER AND BILIARY TRACT DISORD IN , UNSP TRIMESTER K83.1 - OBSTRUCTION OF BILE DUCT Qualifiers: Trimester: third trimester Qualified Code(s): O26.613 - Liver and biliary tract disorders in , third trimester (2) with 37 weeks completed gestation Code(s): Z3A.37 - 37 WEEKS GESTATION OF (3) Acute chorioamnionitis Code(s): O41.1290 - CHORIOAMNIONITIS, UNSP TRIMESTER, NOT APPLICABLE OR UNSP (4) Failed induction of labor Code(s): O61.9 - FAILED INDUCTION OF LABOR, UNSPECIFIED (5) Failure to progress in labor Code(s): O62.2 - OTHER UTERINE INERTIA (6) delivery delivered Code(s): O82 - ENCOUNTER FOR DELIVERY WITHOUT INDICATION Assessment/Plan pod #4 s/p c/section for ac chorioamninitis on iv ampicillin & IV gentamicin IV infiltrated . pt refused for restarting IV She is placed on PO Augmentin. will observe for 24 hrs onpo Antibiotics . will remove juana tomorrow & discharge tomorrow.
[2017-03-22] MEDS: ACETAMINOPHEN 325 MG TABLET (FP) PO PRN (22:48)
[2017-03-22] MEDS: IBUPROFEN 600 MG TABLET (FP) PO PRN (22:48)
[2017-03-23 06:43] LABS: BASOPHIL 0.5 % (0-2.0); EOSINOPHIL 2.2 % (0-4.5); MCH 30.9 pg (25.7-33.7); MCHC 33.6 g/dl (32.0-36.0); MEAN PLT VOLUME 7.6 fl (7.5-11.1); NEUTROPHILS 66.2 % (42.8-82.8); PLATELET COUNT 281 K/MM3 (134-434); RDW 12.8 % (11.6-15.6); WHITE BLOOD COUNT 7.4 K/mm3 (4.0-10.0)
[2017-03-23] MEDS: AMOX TR/POT CLAV 875MG/125MG TABLETS (FP) PO SCH (08:38)
[2017-03-23] MEDS: FERROUS SO4 325 MG TABLET (FP) PO SCH (09:11)
[2017-03-23] MEDS: PRENATAL VITAMINS W/ FOLIC ACID TABLET (FP) PO SCH (09:11)
[2017-03-23 09:38] VITALS: BP 122/79; PULSE 84; TEMP 98.8
--- NOTE | 2017-03-23 09:46 | DS ---
Physical Exam-SPRING ENCASER Vital Signs: Vital Signs Temperature 98.8 F 03/23/17 07:00 Pulse Rate 84 03/23/17 07:00 Respiratory Rate 20 03/23/17 07:00 Blood Pressure 122/79 03/23/17 07:00 O2 Sat by Pulse Oximetry (%) 100 03/19/17 00:30 Constitutional: Yes: Well Nourished, Other (no complains, no fver .24 hrs) Eyes: Yes: WNL HENT: Yes: WNL Neck: Yes: WNL Cardiovascular: Yes: WNL Respiratory: Yes: WNL Gastrointestinal: Yes: WNL, Normal Bowel Sounds, Soft, Other (bm done). No: Distention, Tenderness Renal/: Yes: WNL, Other (voiding without difficlty) ....Post : Yes: Uterus firm, Uterus non-tender, Moderate lochia rubra (no odor) Breast(s): Yes: WNL (BF, full but not engorged) Musculoskeletal: Yes: WNL Extremities: Yes: WNL. No: Calf Tenderness Edema: Yes Edema: LLE: Trace, RLE: Trace Wound/Incision: Yes: Clean/Dry, Well Approximated, Steri Strips, Open to air, Dejah Removed. No: Draining, Reddened, Bleeding, Excoriated Neurological: Yes: WNL, Alert, Oriented ...Motor Strength: WNL Psychiatric: Yes: WNL Labs: CBC, BMP 03/23/17 05:31 03/19/17 07:50 Delivery - Delivery Section: Primary, Low Flap Transverse (indication 37 weeks, Ac Chorioamnionitis , FTP, Failed Induction of labor, cholestasis) Type of Anesthesia: Epidural, Spinal Episiotomy/Laceration: None EBL (cc): 1,000 Delivery, Single - Stages of Labor Date 1st Stage Initiatied: 03/18/17 Time 1st Stage Initiated: 08:45 Date of Delivery: 03/18/17 Time of Delivery: 21:22 Time Placenta Delivered: 21:24 Placenta: Yes: Manual Removal, Uterine Exploration - Condition of Infant Air Quality Consultant/Character Actress Present: Yes Name: Shanda Meng Gender: Male Weight: 6 lb Position: Right, OP Total Hours ROM (Hrs/Mins): 12hrs 44mins - 1 Minute Total Score: 9 5 Minutes Total Score: 9 - [place] Feeding Plan Initial Plan: Elected not to breastfeed exclusively throughout hospitalization Remarks - Remarks Remarks: 21 yrs , 37 weeks , IUP , cholestasis admitted for Induction of labor by Dr Munoz on 03/17/17. pnc at [address] [place] [address] GBS neg Cervidil induction on 03/17/17 Pitocin augmentation 03/18/17 Elevated Temp, 101 .7, not responding to antibiotic iv ancef), tylenol, iv bolus , tachycardia relative to pearlier baseline Ac Chorioamnionitis diagnozed FTP ( 9 cm/+1 st ) , Failed induction of labor . Intra op IV ancef 1 gm & Iv Gentamicin 80 mg Iv given Intraop course uneventful. uterine culture taken . urine c/s sent preop Post op uterine atony suspected, Im Methergine 0.2 mg im & 40 iu pitocin in 1000 ml is given Po Temp 100.4, BP 113/57, Pulse 106/min. post op she was given iv Clindamycin & gentamicin until poday2 , blood cultures & urine culture neg intrauterine culture pos for Enerococci faecalis clindamycin d/last pt placed on iv Ampiciilin& gentamicin, followed by po Augmentin . pt on po augmentin for 24 hrs, afebrile , ct antibiotics for 7 days discharge today anemia counselled Discharge Summary Reason For Visit: C SECTION Current Active Problems Acute chorioamnionitis (Acute) Anemia (Acute) delivery delivered (Acute) Cholestasis during (Acute) Failed induction of labor (Acute) Failure to progress in labor (Acute) with 37 weeks completed gestation (Acute) Condition: Stable - Instructions Diet, Activity, Other Instructions: Post Instructions DIET: Continue good diet high in protein, calcium, and iron rich foods. Drink at least eight (8) glasses of water daily in addition to other fluids. Ct Regular diet ___ Diabetic Diet MEDICATIONS: Continue vitamins and iron as previously directed. Motrin and Tylenol may be taken for minor discomfort. ACTIVITY: Mild to moderate exercise may be started in two (2) weeks. Take frequent rest periods. Resume normal activity after six (6) week check up. WOUND CARE OF OPERATIVE SITE: Continue use of perineal bottle until vaginal discharge stops. Keep area clean. Shower daily. Keep abdominal wound dry. Report any drainage or redness to physician. Tub baths, tampons and douches are not permitted for [address] Breast feeding & or Bottle feeding BREAST CARE: (For those that are not breast feeding): If engorgement occurs: Wear tight fitting bra. Take Tylenol or Motrin for pain. Apply cold packs (ice in bags to each breast ) FAMILY PLANNING: There are many control alternatives to pursue and they should be discussed at your first office visit. You may resume sexual activity after your six (6) week check up. (Remember, breast feeding is not a contraceptive) NEXT PHYSICIAN APPOINTMENT: Be certain to call for a one (1) week appointment, unless otherwise directed. wound check Call Clinic or got to Emergency Dept if you have any of the following: Heavy vaginal bleeding Painful urination Leg pain Unusual odor noted to vaginal bleeding High fever Red streaking noted on breast Referrals: Wilda Mckeon MD [Staff Physician] - Disposition: HOME - Home Medications Comprehensive Discharge Medication List: Ambulatory Orders Ferrous Sulfate 1 tab PO DAILY 03/17/17 Vit/Iron Fumarate/FA [ Tablet] 1 each PO DAILY 03/17/17 Acetaminophen [Tylenol .Regular Strength -] 650 mg PO Q4H PRN #0 tablet Amox-Tr/K Cl [Augmentin 875-125mg Tablet -] 1 tab PO BIDWM #14 tablet 03/22/17 Ferrous Sulfate [Feosol] 325 mg PO BID #60 tab 03/22/17 Ibuprofen [Motrin -] 600 mg PO Q4H PRN #30 tablet 03/22/17 Vitamins (Sjr) - 1 tab PO DAILY tablet 03/22/17
[2017-03-23] MEDS: ACETAMINOPHEN 325 MG TABLET (FP) PO PRN (13:19)
[2017-03-23] MEDS: IBUPROFEN 600 MG TABLET (FP) PO PRN (13:20)
--- NOTE | 2017-03-23 15:40 | PATH ---
Surgical Pathology Report Patient Name: VALERIA DIAZ [facility]. Rec. #: [id number] /Age/Gender: 1995 (Age: 21) / F Account: [id number] Location: [facility] OBS/DIGITAL ACCOUNT SUPERVISOR Taken: 03/18/2017 Received: 03/21/2017 Reported: 03/23/2017 Physicians: Ousmane Munoz M.D. Specimen(s) Received PLACENTA Clinical History , 37.2 weeks' gestation, chorioamnionitis Primary c/section, live male , 9/9 Final Diagnosis PLACENTA, DELIVERY: INTACT, SMALL (<400 GM), THIRD TRIMESTER PLACENTA WITH MILD PREVILLOUS, PERIVILLOUS, AND PRECHORIONIC FIBRIN DEPOSITION, THREE VESSEL UMBILICAL CORD, AND PLACENTAL MEMBRANES WITH FOCAL ACUTE CHORIOAMNIONITIS AND FOCAL ACUTE INFLAMMATION OF CHORIONIC PLATE. Electronically Signed Hima Desouza M.D. Gross Description The specimen is received fresh, labeled "placenta" and is a 371 gram, 16.0 x 14.0 x 2.5 cm placenta with attached membranes and umbilical cord. The attached membranes are espinosa with focal opacities and insert marginally. The umbilical cord measures 8 cm in length and averages 1.4 cm in diameter. The cord inserts centrally. No true knots or strictures are identified. Cut surface of the umbilical cord reveals 3 vessels. The surface is marion-blue with fibrin deposition and appropriate caliber vessels. The maternal surface is red-brown and intact. Sectioning reveals red-brown, spongy parenchyma. No focal lesions are identified. Learning Analyst sections are submitted in three cassettes as follows: 1- membrane rolls and umbilical cord; 2-3- full thickness sections of placenta. /03/22/2017 [facility]03/22/2017
== END 2017-03-23 17:00 | disposition home or self-care (01) | DRG 540 ==
LOC: JLDR 15:45 → J3W 03-19 01:15
PROVIDERS: ADMIT Obstetrics & Gynecology; ATTEND Obstetrics & Gynecology
PROC: 3E0P7GC Introduction of Other Therapeutic Substance into Female Reproductive, Via Natural or Artificial Opening (ICD-10-PCS; 2017-03-16)
PROC: 10D00Z1 Extraction of Products of Conception, Low, Open Approach (ICD-10-PCS; principal; 2017-03-18)
DX: O41.1230 Chorioamnionitis, third trimester, not applicable or unspecified (principal); O61.0 Failed medical induction of labor; O76 Abnormality in fetal heart rate and rhythm complicating labor and delivery; O75.89 Other specified complications of labor and delivery; O26.62 Liver and biliary tract disorders in childbirth; K83.1 Obstruction of bile duct; B95.2 Enterococcus as the cause of diseases classified elsewhere; Z3A.37 37 weeks gestation of pregnancy; Z37.0 Single live birth
CPT/HCPCS: 36415; 36600; 80053; 82803; 85025; 85610; 85730; 86593; 86850; 86900; 86901; 87040; 87070; 87086; 87186; 87205; 88307-TC; 94010

== ENCOUNTER 2017-06-17 22:22 | Emergency (ER) | payer OTHER ==
[2017-06-17 22:32] VITALS: TEMP 97.5; BMI 23.6
--- NOTE | 2017-06-17 22:49 | PDOC ---
History of Present Illness - General History Source: Patient, Family Exam Limitations: No Limitations - History of Present Illness Initial Comments: 06/17/17 23:24 The patient is a 21 year old female with no significant PMH who presents to the emergency department with abdominal pain and upper back pain beginning yesterday. The patient reports the pain to be a sharp feeling located in the epigastric region. The patient notes associated shortness of breath and vomiting with the abdominal pain. The patient reports regular food intake. The patient denies chest pain, headache and dizziness. Denies fever, chills, diarrhea and constipation. Denies dysuria, frequency, urgency and hematuria. LMP: End of last month Allergies: NKA Past surgical history: (1) Social history: No toxic habits reported <Gildardo Llamas - Last Filed: 06/17/17 23:24> <Sallie Mcclendon - Last Filed: 06/18/17 05:08> - General Chief Complaint: Pain, Acute Stated Complaint: ABDOMINAL PAIN Time Seen by Provider: 06/17/17 22:25 Past History <Gildardo Llamas - Last Filed: 06/17/17 23:24> - Past Medical History Asthma: No Cancer: No Cardiac Disorders: No Diabetes: No HTN: No Suicide Attempt (Hx): No Seizures: No Thyroid Disease: No - Psycho/Social/Smoking Cessation Hx Anxiety: No Suicidal Ideation: No Smoking Status: No Smoking History: Never smoked Have you smoked in the past 12 months: No Number of Cigarettes Smoked Daily: 0 Information on smoking cessation initiated: No Hx Alcohol Use: No Drug/Substance Use Hx: No Substance Use Type: None Hx Substance Use Treatment: No <Sallie Mcclendon - Last Filed: 06/18/17 05:08> - Past Medical History Allergies/Adverse Reactions: Allergies Allergy/AdvReac Type Severity Reaction Status Date / Time No Known Allergies Allergy Verified 06/17/17 22:29 Home Medications: Ambulatory Orders Ferrous Sulfate 1 tab PO DAILY 03/17/17 Vit/Iron Fumarate/FA [ Tablet] 1 each PO DAILY 03/17/17 Acetaminophen [Tylenol .Regular Strength -] 650 mg PO Q4H PRN #0 tablet Amox-Tr/K Cl [Augmentin 875-125mg Tablet -] 1 tab PO BIDWM #14 tablet 03/22/17 Ferrous Sulfate [Feosol] 325 mg PO BID #60 tab 03/22/17 Ibuprofen [Motrin -] 600 mg PO Q4H PRN #30 tablet 03/22/17 Vitamins (Sjr) - 1 tab PO DAILY tablet 03/22/17 Acetaminophen [Tylenol] 650 mg PO TID #42 tablet 06/18/17 Review of Systems - Review of Systems Able to Perform ROS?: Yes Comments:: 06/17/17 23:25 CONSTITUTIONAL: Absent: Fevers, chills, diaphoresis, generalized weakness, malaise, loss of appetite HEENT: Absent: rhinorrhea, nasal congestion, throat pain, throat swelling, difficulty swallowing, mouth swelling, ear pain, eye pain, visual changes CARDIOVASCULAR: Absent: chest pain, syncope, palpitations, irregular heart rate, lightheadedness , peripheral edema RESPIRATORY: (+) Shortness of breath Absent: cough, dyspnea with exertion, orthopnea, wheezing, stridor, hemoptysis GASTROINTESTINAL: (+) Epigastric abdominal pain. (+) Vomiting Absent: abdominal distension, diarrhea, constipation, melena, hematochezia GENITOURINARY: Absent: dysuria, frequency, urgency, hesitancy, hematuria, genital pain MUSCULOSKELETAL:(+) Upper back pain. Absent: arthralgia, joint swelling SKIN: Absent: rash, itching, pallor HEMATOLOGIC/IMMUNOLOGIC: Absent: easy bleeding, easy bruising, lymphadenopathy, frequent infections ENDOCRINE: Absent: unexplained weight gain, unexplained weight loss, heat intolerance, cold intolerance NEUROLOGIC: Absent: headache, focal weakness or paresthesias, dizziness, unsteady gait, seizure, mental status changes, bladder or bowel incontinence PSYCHIATRIC: Absent: anxiety, depression, suicidal or homicidal ideation, hallucinations. <Gildardo Llamas - Last Filed: 06/17/17 23:24> *Physical Exam - Vital Signs Last Vital Signs Temp Pulse Resp BP Pulse Ox 97.5 F L 65 20 114/77 100 06/17/17 22:29 06/17/17 22:29 06/17/17 22:29 06/17/17 22:29 06/17/17 22:29 - Physical Exam Comments: 06/17/17 23:25 GENERAL: Well developed, well nourished. Awake and alert. No acute distress. HEENT: Normocephalic, atraumatic. PERRLA, EOMI. No conjunctival pallor. Sclera are non- icteric. Moist mucous membranes. Oropharynx is clear. NECK: Supple. Full ROM. No JVD. Carotid pulses 2+ and symmetric, without bruits. No thyromegaly. No lymphadenopathy. CARDIOVASCULAR: Regular rate and rhythm. No murmurs, rubs, or gallops. Distal pulses are 2+ and symmetric. PULMONARY: No evidence of respiratory distress. Lungs clear to auscultation bilaterally. No wheezing, rales or rhonchi. ABDOMINAL: (+) Gassy bowel sounds. Soft. Non-tender. Non-distended. No rebound or guarding. No organomegaly. MUSCULOSKELETAL Normal range of motion at all joints. No bony deformities or tenderness. No CVA tenderness. EXTREMITIES: No cyanosis. No clubbing. No edema. No calf tenderness. SKIN: Warm and dry. Normal capillary refill. No rashes. No jaundice. NEUROLOGICAL: Alert, awake, appropriate. Cranial nerves 2-12 intact. No deficits to light touch and temperature in face, upper extremities and lower extremities. No motor deficits in the in face, upper extremities and lower extremities. Normoreflexic in the upper and lower extremities. Normal speech. Toes are downgoing bilaterally. PSYCHIATRIC: Cooperative. Good eye contact. Appropriate mood and affect. <Gildardo Llamas - Last Filed: 06/17/17 23:24> - Vital Signs Last Vital Signs Temp Pulse Resp BP Pulse Ox 97.5 F L 65 20 114/77 100 06/17/17 22:29 06/17/17 22:29 06/17/17 22:29 06/17/17 22:29 06/17/17 22:29 <Sallie Mcclendon - Last Filed: 06/18/17 05:08> ED Treatment Course - LABORATORY CBC & Chemistry Diagram: 06/17/17 23:32 06/17/17 23:32 <Sallie Mcclendon - Last Filed: 06/18/17 05:08> Medical Decision Making - Medical Decision Making 06/18/17 05:06 Pt comes with vomiting and abd pain after eating pork and rice. Rest of family ate the same and didnt get ill. She likely has a viral gastroenteritis. Labs normal UA normal and HCG negative SHe was treated with pain meds and IVF nd pepcid. She is feeling better. No cough and no chest pain . She has upper back pain, but her vitals are stable and she has no fevers or chills and her lungs are clear. Pt has no dizziness. She will be discharged home with PMD follow up as needed. <Sallie Mcclendon - Last Filed: 06/18/17 05:08> *DC/Admit/Observation/Transfer - Attestations Scribe Attestion: 06/17/17 23:25 Documentation prepared by Gildardo Llamas, acting as medical support assistant for Sallie Mcclendon MD. <Gildardo Llamas - Last Filed: 06/17/17 23:24> - Discharge Dispostion Admit: No <Sallie Mcclendon - Last Filed: 06/18/17 05:08> Diagnosis at time of Disposition: Gastroenteritis - Discharge Dispostion Disposition: HOME Condition at time of disposition: Stable - Prescriptions Prescriptions: Acetaminophen [Tylenol] 650 mg PO TID #42 tablet - Patient Instructions Printed Discharge Instructions: Gastroenteritis Diet, Viral Gastroenteritis
[2017-06-17] MEDS ORDERED: SODIUM CHLORIDE 0.9% 500 ML INFUS.BAG IV ONE (23:10)
[2017-06-17] MEDS ORDERED: ONDANSETRON 4 MG/2 ML VIAL IVPB ONE (23:10)
[2017-06-17] MEDS ORDERED: morphine CARPU-JECT 2 MG/1 ML DISP.SYRIN IVPUSH ONE (23:10)
[2017-06-17] MEDS ORDERED: FAMOTIDINE 20 MG/50 ML IVPB 50 ML IVPB ONE ×2 (23:10→23:18)
[2017-06-17] MEDS ORDERED: morphine CARPU-JECT 4 MG/1 ML DISP.SYRIN ONE (23:17)
[2017-06-17] MEDS ORDERED: ONDANSETRON 4 MG/2 ML VIAL ONE (23:18)
[2017-06-17 23:41] LABS: BASOPHIL 0.5 % (0-2.0); EOSINOPHIL 3.7 % (0-4.5); MCHC 33.3 g/dl (32.0-36.0); MEAN CELL VOLUME 87.2 fl (80-96); MEAN PLT VOLUME 7.9 fl (7.5-11.1); NEUTROPHILS 73.5 % (42.8-82.8); PLATELET COUNT 269 K/MM3 (134-434); RDW 12.8 % (11.6-15.6); WHITE BLOOD COUNT 11.8 K/mm3 (4.0-10.0)
[2017-06-18 00:02] LABS: ALBUMIN 4.1 g/dl (3.4-5.0); ANION GAP 9 (8-16); BILIRUBIN,TOTAL 0.3 mg/dL (0.2-1.0); CALCIUM 8.7 mg/dL (8.5-10.1); CO2 28 mmol/L (21-32); CREATININE 0.8 mg/dL (0.55-1.02); GLUCOSE,RANDOM 99 mg/dL (74-106); SGOT/AST 78 U/L (15-37); SGPT/ALT 68 U/L (12-78); TOT PROT 7.7 g/dl (6.4-8.2)
[2017-06-18 00:03] LABS: ALK PHOS 127 U/L (45-117)
[2017-06-18] MEDS ORDERED: ACETAMINOPHEN 500 MG TABLET (FP) PO ONE (01:29)
[2017-06-18] MEDS ORDERED: ACETAMINOPHEN 325 MG TABLET (FP) ONE (01:30)
[2017-06-18 01:42] LABS: URINE APPEARANCE CLEAR; URINE BILIRUBIN NEGATIVE (NEGATIVE); URINE BLOOD NEGATIVE (NEGATIVE); URINE COLOR LTYELLOW; URINE GLUCOSE (UA) NEGATIVE (NEGATIVE); URINE KETONE NEGATIVE (NEGATIVE); URINE LEUK ESTERASE NEGATIVE (NEGATIVE); URINE NITRITE NEGATIVE (NEGATIVE); URINE PROTEIN NEGATIVE (NEGATIVE); URINE UROBILINOGEN NEGATIVE mg/dL (0.2-1.0)
[2017-06-18 02:03] VITALS: BP 122/68; PULSE 78
== END 2017-06-18 02:03 | disposition home or self-care (01) ==
LOC: JER 22:22
PROC: 3E033NZ Introduction of Analgesics, Hypnotics, Sedatives into Peripheral Vein, Percutaneous Approach (ICD-10-PCS; principal; 2017-06-17)
PROC: 3E033GC Introduction of Other Therapeutic Substance into Peripheral Vein, Percutaneous Approach (ICD-10-PCS; 2017-06-17)
PROC: 3E0337Z Introduction of Electrolytic and Water Balance Substance into Peripheral Vein, Percutaneous Approach (ICD-10-PCS; 2017-06-17)
DX: K52.9 Noninfective gastroenteritis and colitis, unspecified (principal)
CPT/HCPCS: 36415; 80053; 81003; 84703; 85025; 99282-25

== ENCOUNTER 2021-04-16 14:22 | Emergency (ER) | payer OTHER ==
[2021-04-16 14:35] VITALS: BP 122/67; PULSE 74; TEMP 98.2; BMI 26.4
[2021-04-16 15:59] LABS: BASO % 0.4 % (0-2.0); EOS % 0.6 % (0-4.5); HEMATOCRIT 35.8 % (32.4-45.2); HEMOGLOBIN 12.4 GM/dL (10.7-15.3); LYMPH % 20.8 % (8-40); MCH 30.7 pg (25.7-33.7); MCHC 34.8 g/dl (32.0-36.0); MEAN CELL VOLUME 88.1 fl (80-96); MEAN PLT VOLUME 7.7 fl (7.5-11.1); MONO % 6.8 % (3.8-10.2); NEUT % 71.4 % (42.8-82.8); PLATELET COUNT 272 K/MM3 (134-434); RBC 4.06 M/mm3 (3.60-5.2); RDW 12.6 % (11.6-15.6); WHITE BLOOD COUNT 9.6 K/mm3 (4.0-10.0)
[2021-04-16 16:09] LABS: BLOOD UREA NITROGEN 8.4 mg/dL (7-18)
[2021-04-16 16:12] LABS: CREATININE 0.5 mg/dL (0.55-1.3)
[2021-04-16 17:32] LABS: EPI CELLS 32 /uL (0-25.1); HYALINE CASTS 0 /uL (0-3.1); PH,URINE 6.5 (5.0-8.0); URINE APPEARANCE CLEAR; URINE BACTERIA 413 /uL (0-1359); URINE BILIRUBIN NEGATIVE (NEGATIVE); URINE COLOR YELLOW; URINE GLUCOSE (UA) NEGATIVE (NEGATIVE); URINE KETONE NEGATIVE (NEGATIVE); URINE LEUK ESTERASE 1+ (NEGATIVE); URINE NITRITE NEGATIVE (NEGATIVE); URINE PROTEIN NEGATIVE (NEGATIVE); URINE RBC 11 /uL (0-23.9); URINE UROBILINOGEN 0.2 mg/dL (0.2-1.0); URINE WBC 36 /uL (0-25.8)
== END 2021-04-16 17:52 | disposition home or self-care (01) ==
LOC: JER 14:22
DX: O26.851 Spotting complicating pregnancy, first trimester (principal); Z3A.09 9 weeks gestation of pregnancy
CPT/HCPCS: 36415; 76817-TC; 80048; 81003; 84702; 85025; 86850; 86900; 86901; 87077; 87086; 99284-25

== ENCOUNTER 2021-04-24 13:55 | Emergency (ER) | payer OTHER ==
[2021-04-24 14:07] VITALS: BMI 26.4
[2021-04-24] MEDS ORDERED: SODIUM CHLORIDE 1,000 ML IV STA ×2 (14:57→19:10)
[2021-04-24] MEDS ORDERED: FAMOTIDINE 20 MG/50 ML IVPB 20 MG/50 ML MG IVPB ONE ×2 (14:57→15:25)
[2021-04-24] MEDS ORDERED: ONDANSETRON 4 MG/2 ML VIAL IVPUSH ONE (14:57)
[2021-04-24] MEDS ORDERED: ONDANSETRON 4 MG/2 ML VIAL ONE (15:24)
[2021-04-24 16:50] LABS: BASO % 0.3 % (0-2.0); HEMATOCRIT 36.2 % (32.4-45.2); HEMOGLOBIN 12.5 GM/dL (10.7-15.3); LYMPH % 16.6 % (8-40); MCH 30.5 pg (25.7-33.7); MCHC 34.5 g/dl (32.0-36.0); MEAN CELL VOLUME 88.5 fl (80-96); MEAN PLT VOLUME 7.8 fl (7.5-11.1); MONO % 4.7 % (3.8-10.2); NEUT % 78.4 % (42.8-82.8); PLATELET COUNT 273 10^3/uL (134-434); RBC 4.09 M/mm3 (3.60-5.2); RDW 12.8 % (11.6-15.6); WHITE BLOOD COUNT 8.4 K/mm3 (4.0-10.0)
[2021-04-24 16:59] LABS: EPI CELLS >36 /uL (0-25.1); HYALINE CASTS 6 /uL (0-3.1); URINE APPEARANCE CLEAR; URINE BACTERIA 802 /uL (0-1359); URINE BILIRUBIN 1+ (NEGATIVE); URINE COLOR DK YELLOW; URINE GLUCOSE (UA) NEGATIVE (NEGATIVE); URINE KETONE 4+ (NEGATIVE); URINE LEUK ESTERASE TRACE (NEGATIVE); URINE NITRITE NEGATIVE (NEGATIVE); URINE PROTEIN 1+ (NEGATIVE); URINE RBC 8 /uL (0-23.9); URINE WBC 22 /uL (0-25.8)
[2021-04-24 17:00] LABS: ALBUMIN 3.9 g/dl (3.4-5.0); CALCIUM 8.9 mg/dL (8.5-10.1)
[2021-04-24 17:01] LABS: BLOOD UREA NITROGEN 9.8 mg/dL (7-18)
[2021-04-24 17:04] LABS: CREATININE 0.5 mg/dL (0.55-1.3)
[2021-04-24 17:05] LABS: BILIRUBIN,TOTAL 0.7 mg/dL (0.2-1); TOT PROT 7.6 g/dl (6.4-8.2)
[2021-04-24] MEDS ORDERED: DEXTROSE 5%-NORMAL SALINE 1,000 ML IV ONE (17:25)
[2021-04-24 18:38] VITALS: BP 110/52; PULSE 72; TEMP 98.5
== END 2021-04-24 22:33 | disposition home or self-care (01) ==
LOC: JER 13:55
PROC: 3E033GC Introduction of Other Therapeutic Substance into Peripheral Vein, Percutaneous Approach (ICD-10-PCS; principal; 2021-04-24)
PROC: 3E033GC Introduction of Other Therapeutic Substance into Peripheral Vein, Percutaneous Approach (ICD-10-PCS; 2021-04-24)
PROC: 3E033GC Introduction of Other Therapeutic Substance into Peripheral Vein, Percutaneous Approach (ICD-10-PCS; 2021-04-24)
PROC: 3E0337Z Introduction of Electrolytic and Water Balance Substance into Peripheral Vein, Percutaneous Approach (ICD-10-PCS; 2021-04-24)
PROC: 3E0337Z Introduction of Electrolytic and Water Balance Substance into Peripheral Vein, Percutaneous Approach (ICD-10-PCS; 2021-04-24)
DX: O21.1 Hyperemesis gravidarum with metabolic disturbance (principal); Z3A.10 10 weeks gestation of pregnancy
CPT/HCPCS: 36415; 80053; 81003; 82962; 84702; 85025; 87086; 96361; 96374; 96375; 99284-25

== ENCOUNTER 2021-05-04 20:42 | Emergency (ER) | payer OTHER ==
[2021-05-04 21:00] VITALS: BP 110/70; PULSE 73; TEMP 98.3; BMI 24.6
[2021-05-04 22:44] LABS: BASO % 0.4 % (0-2.0); EOS % 0.4 % (0-4.5); HEMATOCRIT 36.8 % (32.4-45.2); HEMOGLOBIN 12.6 GM/dL (10.7-15.3); MCHC 34.1 g/dl (32.0-36.0); MEAN CELL VOLUME 88.1 fl (80-96); MEAN PLT VOLUME 7.8 fl (7.5-11.1); MONO % 5.9 % (3.8-10.2); NEUT % 67.3 % (42.8-82.8); PLATELET COUNT 274 10^3/uL (134-434); RBC 4.18 M/mm3 (3.60-5.2); WHITE BLOOD COUNT 7.3 K/mm3 (4.0-10.0)
[2021-05-04 22:57] LABS: EPI CELLS 35 /uL (0-25.1); HYALINE CASTS 8 /uL (0-3.1); URINE APPEARANCE CLEAR; URINE BACTERIA 834 /uL (0-1359); URINE BILIRUBIN NEGATIVE (NEGATIVE); URINE COLOR YELLOW; URINE GLUCOSE (UA) NEGATIVE (NEGATIVE); URINE KETONE 3+ (NEGATIVE); URINE LEUK ESTERASE 3+ (NEGATIVE); URINE NITRITE NEGATIVE (NEGATIVE); URINE PROTEIN NEGATIVE (NEGATIVE); URINE RBC 10 /uL (0-23.9); URINE WBC 196 /uL (0-25.8)
== END 2021-05-04 23:48 | disposition home or self-care (01) ==
LOC: JER 20:42
DX: N30.00 Acute cystitis without hematuria (principal)
CPT/HCPCS: 36415; 81003; 85025; 87086; 99283-25

== ENCOUNTER 2021-10-28 11:20 | Inpatient (IN) | payer OTHER ==
[2021-10-28 12:56] LABS: BASO % 0.1 % (0-2.0); EOS % 0.1 % (0-4.5); HEMATOCRIT 34.4 % (32.4-45.2); HEMOGLOBIN 11.8 GM/dL (10.7-15.3); LYMPH % 13.8 % (8-40); MCH 30.9 pg (25.7-33.7); MCHC 34.3 g/dl (32.0-36.0); MEAN CELL VOLUME 90.3 fl (80-96); MEAN PLT VOLUME 7.4 fl (7.5-11.1); PLATELET COUNT 311 10^3/uL (134-434); RBC 3.81 M/mm3 (3.60-5.2); RDW 13.7 % (11.6-15.6); WHITE BLOOD COUNT 10.2 K/mm3 (4.0-10.0)
[2021-10-28 13:01] LABS: INR 1.01 (0.83-1.09); PROTHROMBIN TIME (PATIENT) 11.8 SEC (9.7-13.0)
[2021-10-28 13:04] LABS: ACTIVATED PTT 27.2 SECONDS (25.2-36.5)
[2021-10-28 13:06] VITALS: BMI 29.0
[2021-10-28 13:23] LABS: CALCIUM 8.3 mg/dL (8.5-10.1)
[2021-10-28 13:24] LABS: BLOOD UREA NITROGEN 6.1 mg/dL (7-18)
[2021-10-28 13:27] LABS: CREATININE 0.5 mg/dL (0.55-1.3)
[2021-10-28 13:49] LABS: SYPHILIS W/ RPR CONF NON-REACTIVE (NONREACTIVE)
[2021-10-28 14:18] LABS: HIV INTERPRETATION NEGATIVE (NEGATIVE)
[2021-10-28] MEDS ORDERED: ELECTROLYTE-148 SOLN 1,000 ML IV SCH (15:00)
[2021-10-28] MEDS ORDERED: PCA PUMP NR ONE (15:39)
[2021-10-28] MEDS ORDERED: NALOXONE HCL 0.4 MG/ML VIAL IVPUSH PRN (15:41)
[2021-10-28] MEDS ORDERED: BUPIVACAINE HCL/PF 0.25% (2.5MG/ML) 10 ML VIAL ONE (15:43)
[2021-10-28] MEDS ORDERED: FENTANYL/BUPIVACAINE/NS/PF - PCEA - 50 ML DISP.SYRIN EP SCH (15:45)
[2021-10-28] MEDS ORDERED: FENTANYL/BUPIVACAINE/NS/PF - PCEA - 50 ML DISP.SYRIN EP ONE (15:49)
[2021-10-28] MEDS ORDERED: LIDOCAINE HCL 1% PRESERVATIVE FREE - 30ML VIAL ONE (16:03)
[2021-10-28] MEDS ORDERED: OXYTOCIN 20 UNITS in 0.9% NS 20 UNIT/1,000 ML INFUS.BAG IV ONE (16:03)
[2021-10-28] MEDS ORDERED: WITCH HAZEL 50% (TUCKS) 40 PAD/JAR PAD TP PRN (18:45)
[2021-10-28] MEDS ORDERED: OXYTOCIN 20 UNITS in 0.9% NS 20 UNIT/1,000 ML INFUS.BAG IV SCH (18:45)
[2021-10-28] MEDS ORDERED: oxyCODONE HCL 5 MG TABLET PO PRN (18:45)
[2021-10-28] MEDS ORDERED: BENZOCAINE 20% 57 GM BOTTLE TP PRN (18:45)
[2021-10-28] MEDS ORDERED: BISACODYL 10 MG SUPP.RECT RC PRN (18:45)
[2021-10-28] MEDS ORDERED: BENZOCAINE 28 GM HEMORRHOIDAL OINTMENT TP PRN (18:45)
[2021-10-28] MEDS ORDERED: METHYLERGONOVINE MALEATE 0.2 MG/1 ML AMP IM PRN (18:45)
[2021-10-28 19:06] LABS: CORD BASE EXCESS -3.8 mmol/L (0-2); CORD HCO3 22.3 mmHg (20-29); CORD PCO2 44.4 mmHg (30-78); CORD pH 7.319 (7.14-7.44)
[2021-10-28 19:07] LABS: CORD BASE EXCESS -3.2 mmol/L (0-2); CORD HCO3 23.5 mmHg (20-29); CORD PCO2 48.6 mmHg (30-78); CORD pH 7.303 (7.14-7.44)
[2021-10-28] MEDS: ACETAMINOPHEN 325 MG TABLET (FP) PO PRN (21:08)
[2021-10-29] MEDS: ACETAMINOPHEN 325 MG TABLET (FP) PO PRN (06:14)
[2021-10-29 07:07] LABS: BASO % 0.2 % (0-2.0); EOS % 0.2 % (0-4.5); HEMATOCRIT 29.2 % (32.4-45.2); HEMOGLOBIN 9.8 GM/dL (10.7-15.3); LYMPH % 15.8 % (8-40); MCH 30.2 pg (25.7-33.7); MCHC 33.4 g/dl (32.0-36.0); MEAN CELL VOLUME 90.3 fl (80-96); MEAN PLT VOLUME 7.5 fl (7.5-11.1); MONO % 5.5 % (3.8-10.2); NEUT % 78.3 % (42.8-82.8); PLATELET COUNT 250 10^3/uL (134-434); RBC 3.24 M/mm3 (3.60-5.2); RDW 13.8 % (11.6-15.6)
[2021-10-29] MEDS: IBUPROFEN 600 MG TABLET (FP) PO PRN ×2 (09:20→17:48)
[2021-10-29] MEDS: PRENATAL VITAMINS W/ FOLIC ACID TABLET (FP) PO SCH (09:20)
[2021-10-29] MEDS ORDERED: SENNOSIDES/DOCUSATE COMBO (SENNA PLUS) TABLET (UD) PO PRN (22:00)
[2021-10-30] MEDS: IBUPROFEN 600 MG TABLET (FP) PO PRN (09:48)
[2021-10-30] MEDS: PRENATAL VITAMINS W/ FOLIC ACID TABLET (FP) PO SCH (09:48)
[2021-10-30 16:27] VITALS: BP 107/72; PULSE 92; TEMP 98.4
[2021-11-02 09:35] LABS: POC NITRAZINE POS
== END 2021-10-30 15:40 | disposition home or self-care (01) | DRG 560 ==
LOC: JDEL 11:20 → JLDR 11:45 → J3W 21:02
PROVIDERS: ADMIT Obstetrics & Gynecology; ATTEND Obstetrics & Gynecology
PROC: 0KQM0ZZ Repair Perineum Muscle, Open Approach (ICD-10-PCS; principal; 2021-10-28)
PROC: 10E0XZZ Delivery of Products of Conception, External Approach (ICD-10-PCS; 2021-10-28)
DX: O34.219 Maternal care for unspecified type scar from previous cesarean delivery (principal); O70.1 Second degree perineal laceration during delivery; Z3A.37 37 weeks gestation of pregnancy; Z37.0 Single live birth
CPT/HCPCS: 36415; 36600; 59409; 80048; 82803; 83986-QW; 85025; 85610; 85730; 86780; 86850; 86900; 86901; 87389; C9803; U0003; U0005